=== PATIENT | male | born 1945 | race Caucasian/White ===

== ENCOUNTER 2017-05-03 00:26 | Day surgery (SDC) | payer OTHER ==
[~2017-05-03] VITALS: Ht 175.3 cm; Wt 138.3 kg
[2017-05-03] VITALS (17 sets, daily range): BP systolic 101–158; BP diastolic 59–97; PULSE 42–79; RESP 10–20; O2SAT 95–100
[~2017-05-03 00:26] MED LIST: ACET325C PO; AMIO200T PO; ASPI-973 PO; BUPR100T15 PO; DIGO125T73 PO; FINA5TAB9 PO; FUR20 PO; OMEG-38 PO; OXYC1TAB24 PO; PRAZ2CAP2 PO; PROP20TA5 PO; WARF5TAB7 PO; ZOLP10TA5 PO
[2017-05-03] MEDS ORDERED: Glycopyrrolate 0.2 MG/ML 1mL Inj ONE (00:27)
[2017-05-03] MEDS ORDERED: Ondansetron 2 mg/mL 2 mL Inj ONE (00:27)
[2017-05-03] MEDS ORDERED: Protamine Sulfate 10 mg/mL 5 mL Inj ONE ×2 (00:27→11:43)
[2017-05-03] MEDS ORDERED: fentaNYL-PF 50 mCg/mL 2 mL Inj ONE (00:27)
[2017-05-03] MEDS ORDERED: Propofol 10,000 mCg/mL 20 mL Inj ONE (00:27)
[2017-05-03] MEDS ORDERED: Rocuronium 10 mg/mL 5 mL Inj ONE (00:27)
[2017-05-03] MEDS ORDERED: Neostigmine 1 mg/mL 10 mL Inj ONE (00:27)
[2017-05-03] MEDS ORDERED: Benzoc-Butamben-Tetraca Spray 20 Gm Spray TOPICAL ONE (06:00)
[2017-05-03] MEDS: 0.9% Sodium Chloride 1,000 ML IV SCH ×2 (06:00→17:50)
[2017-05-03] MEDS ORDERED: Lactated Ringer's 1,000 ML IV ONE (06:00)
[2017-05-03 06:54] LABS: BASOPHILS % (AUTO) 0.4 % (0-3); EOSINOPHILS % (AUTO) 1.4 % (0-5); MONOCYTES % (AUTO) 7.1 % (4-12); Mean Corpuscular Hemoglobin 31.3 pg (27.0-35.0); Mean Corpuscular Volume 95.9 fL (81-100); NEUTROPHILS % (AUTO) 59.9 % (40-74); Platelet Count 168 bil/L (150-400)
--- NOTE | 2017-05-03 06:58 | NUR ---
patient admitted for AFSHIN/atrial fibrillation ablation with Dr. Morrissey.He is accompanied by his .
[2017-05-03 07:00] LABS: INR 2.32 ratio
[2017-05-03] MEDS ORDERED: WARF2.5T82 PO (07:18)
[2017-05-03] MEDS ORDERED: Heparin 25,000 Unit/500 mL 0.45% NS Premix IV ONE (07:33)
[2017-05-03] MEDS ORDERED: Heparin 1,000 Unit/mL 10 mL Inj ONE ×2 (07:33→11:41)
[2017-05-03] MEDS ORDERED: Heparin 1,000 Units/500 mL NS Premix IV ONE ×2 (07:39→08:06)
[2017-05-03] MEDS ORDERED: Heparin 10,000 Unit/1,000 mL NS Premix IV ONE (08:26)
[2017-05-03] MEDS ORDERED: Lactated Ringer's 500 ML IV PRN (11:03)
[2017-05-03] MEDS ORDERED: Lactated Ringer's 1,000 ML IV SCH (11:03)
--- NOTE | 2017-05-03 11:03 | PCM.HPANE ---
Patient Data Date of Service: May 03, 2017 (0750) Surgeon Admitting Provider: Attending Provider:Oleg Morrissey MD Primary Care Physician:Liam Ortega MD Other Provider:Suzie Jensen Anesthesia Reason for Visit Persistent Atrial Fibrillation Ht/WT & BMI Height (Feet): 5 Height (Inches): 9.00 Weight (Kilograms): 138.350 Body Mass Index 45.18 Past Anesthesia History Anesthesia History: Denies:: Abnormal Airway, Anesthesia Reactions, Difficult Intubation, Fam Anesthesia Reaction, Fam Malignant Hypertherm, Malignant Hyperthermia Diabetes History Hx Diabetes?: No MRSA MRSA: No Medications Reported Medications Warfarin Sodium 2.5 Mg Tablet2.5 Mg PO 4xweekly 30 Days Ref 0 05/03/17 Zolpidem 10 Mg [id number] Mg PO HS PRN For Insomnia Ref 0 05/02/17 Warfarin Sodium 5 Mg Tablet5 Mg PO 3xweekly 30 Days Ref 0 05/02/17 Propranolol HCl 20 Mg Gyzane90 Mg PO BID 90 Days Ref 0 05/02/17 Prazosin 2 Mg Capsule6 Mg PO HS 05/02/17 Furosemide 20 Mg Tab20 Mg PO DAILY 30 Days Ref 0 05/02/17 Finasteride 5 Mg Tablet5 Mg PO DAILY 30 Days Ref 0 05/02/17 Bupropion 100 Mg Sigxhv924 Mg PO BID Ref 0 05/02/17 Amiodarone 200 Mg Iofmzu129 Mg PO DAILY Ref 0 05/02/17 Acetaminophen 325 Mg [id number] Mg PO 05/02/17 Discontinued Reported Medications oxyCODONE-Acetaminophen 5-325 mg 1 Each Tablet1 Tab PO Q6H PRN For Pain Ref 0 05/02/17 [place]-3/Dha/Epa/Fish Oil (Fish Oil 1,000 mg Softgel)1 Each Capsule1 Each PO 05/02/17 Digoxin 125 Mcg Nrtlvq967 Mcg PO DAILY #30 TABLET Ref 0 05/02/17 Aspirin 81 Mg Hcdoui80 Mg PO DAILY Ref 0 05/02/17 History History of ENT Problems?: Yes HEENT History: Positive for:: Cataracts (removal from both eyes) Sinus Problem (seasonal allergies) Denture Type: None Teeth Condition: Within Normal Limits Hx of Heart Problems?: Yes Cardiovascular History: Positive for:: Cardiac Surgery (cardioversions) Irregular Heartbeat (atrial fibrillation) Hx of Respiratory Problem?: Yes Respiratory History: Positive for:: Dyspnea (exertional 2nd to atiral fib) Denies:: Asthma COPD Chest Surgery Cough Emphysema Hemoptysis Oxygen Administration Pneumonia Pulmonary Embolism Tuberculosis Use of C-PAP Machine Use of Inhalers / NEBS Hx Neurologic Problems?: No Hx of GI Problems?: Yes Hx of Problems?: No Hx Musculoskeletal Problems?: Yes Musculoskeletal History: Positive for:: Joint Replacement (left knee injury) Denies:: Back Injury Degenerative Joint Fibromyalgia Musculoskeletal Trauma Myasthenia Gravis Osteoarthritis Rheumatoid Arthritis Systemic Lupus Hx of Psycho/Social Problems?: Yes Psycho Social History: Positive for:: Hx Depression ("treated for years") Hx Surgeries?: Yes Hx Any Other Health Problems?: No Other History: Positive for:: Hospitalization (gastric bypass 1998, left arm, left wrist) Denies:: Cancer Thyroid Disease History Blood Transfusions: Positive for:: Accept Blood Products? Denies:: Blood Transfusions Hx Diabetes: No Hx Alcohol Use: Yes (2-3 glasses wine daily)Hx Substance Use: No Stop/Bang Risk Assessment Category Category 1A: Patient has history of documented sleep apnea, and HAS NOT received any narcotic, sedative or anesthesia administration during this stay. Category 1B: Patient has history of documented sleep apnea, and HAS received any narcotic , sedative or anesthesia administration during this stay Category 2: Patient has SUSPECTED Obstructive Sleep Apnea, and HAS received any narcotic , sedative or anesthesia administration during this stay. Category 3: Patient has SUSPECTED Obstructive Sleep Apnea and HAS NOT received narcotic, sedative or anesthesia administration during this stay. Category 4: Outpatient in Procedural Areas with known sleep apnea or who screen positive for High Risk via the STOP/BANG questionnaire. Exam Exam Vital Signs Vital Signs Date Time Temp Pulse Resp B/P Pulse Ox O2 Delivery O2 Flow Rate FiO2 05/03/17 06:44 37.0 79 10 158/97 97 Room Air General Appearance: Alert, Oriented X3, Cooperative, No Acute Distress HEENT/AIRWAY: MP 3 Lungs: Clear to Auscultation Heart: No Murmurs/Rubs/Gallops, Other (irregular) Meds/Labs/Diagnostics Labs Test 05/03/17 06:38 White Blood Count 4.9th/mm3 (3.8-10.1) Red Blood Count 4.18mil/mm3 (4.40-5.80) Hemoglobin 13.1g/dL (13.8-17.2) Hematocrit 40.1% (41.0-50.0) Mean Corpuscular Volume 95.9fL (81-100) Mean Corpuscular Hemoglobin 31.3pg (27.0-35.0) Mean Corpuscular Hemoglobin Concent 32.7% (32.0-37.0) Red Cell Distribution Width 14.6% (12.3-15.4) Platelet Count 168bil/L (150-400) Neutrophils (%) (Auto) 59.9% (40-74) Lymphocytes (%) (Auto) 31.0% (14-46) Monocytes (%) (Auto) 7.1% (4-12) Eosinophils (%) (Auto) 1.4% (0-5) Basophils (%) (Auto) 0.4% (0-3) Prothrombin Time 25.2sec (8.1-12.5) Prothromb Time International Ratio 2.32ratio Sodium Level 142mEq/L (134-144) Potassium Level 4.5mEq/L (3.5-5.2) Chloride Level 107mEq/L (97-108) Carbon Dioxide Level 20mmol/L (18-29) Blood Urea Nitrogen 24mg/dL (8-27) Creatinine 1.00mg/dL (0.76-1.27) Estimat Glomerular Filtration Rate 79mL/min (>59) Glucose Level 136mg/dL (60-99) Calcium Level 9.0mg/dL (8.5-10.1) Plan Impression Patient chart reviewed, patient interviewed and anesthestic plan with risks, benefits, and alternatives discussed, and informed consent obtained. ASA Physical Status: ASA3 Severe Disease Anesthetic Support Modalities: Arterial Line Anesthetic Plan: GA Bene/Risks/Altern/Consents: Yes HP Complete Prior to Induction: Yes Sundar Garcia MD May 03, 2017 11:03
[2017-05-03] MEDS ORDERED: HYDROmorphone 1 mg/mL Inj IVPUSH PRN (11:05)
[2017-05-03] MEDS ORDERED: EPHEDrine Sulfate 50 mg/mL Inj IVPUSH PRN (11:05)
[2017-05-03] MEDS ORDERED: fentaNYL-PF 50 mCg/mL 2 mL Inj IVPUSH PRN (11:05)
[2017-05-03] MEDS ORDERED: Phenylephrine 10,000 mCg/mL Inj IVPUSH PRN (11:05)
[2017-05-03] MEDS ORDERED: Dexamethasone 4 mg/mL Inj IVPUSH PRN (11:05)
[2017-05-03] MEDS ORDERED: Ondansetron 2 mg/mL 2 mL Inj IVPUSH PRN (11:05)
[2017-05-03] MEDS ORDERED: MetoCLOpramide 5 mg/mL 2 mL Inj IVPUSH PRN (11:05)
--- NOTE | 2017-05-03 11:07 | DRSVH ---
[facility] [address] [place] [address] Echocardiogram Report Name: EDUARDO HERNANDEZ RStudy Date: 05/03/2017 Height: 69 in Hospital Exam Location: [facility] Weight: 305 lb Gender: Male BSA: 2.5 m2 : 1945 Age: 72 yrs BP: 154/98 mmHg Performed By: Mila Abreu Referring Physician: SLICK RODRIGUEZ Interpretation Summary No thrombus is detected in the left atrial appendage. Procedure: A multifrequency, multiplane transesopheageal echocardiographic endoscope was inserted and manipulated in the standard fashion to achieve multiplane views. Atria: No thrombus is detected in the left atrial appendage. Mitral Valve: There is mild to moderate mitral regurgitation. Aortic Valve: The aortic valve is normal in structure and function. Reading Physician:09:37 AM
[2017-05-03] MEDS ORDERED: 0.9% Sodium Chloride 1,000 ML ONE (11:36)
--- NOTE | 2017-05-03 12:22 | PCM.ANEP1 ---
Post Anesthesia PACU Phase 1 Assessment Vital Signs Vital Signs Date Time Temp Pulse Resp B/P Pulse Ox O2 Delivery O2 Flow Rate FiO2 05/03/17 06:44 37.0 79 10 158/97 97 Room Air Anesthetic Administered: GA Level of Alertness: Awake, talking Pain: No Nausea or Vomiting: No CV Function & Hydration Stable: Yes Airway Device: Oxygen Delivery: Simple Mask Lungs: Clear to Auscultation Dermatome Level: Full Sensation PACU Phase 2 Assessment Complications: No Patient Instructions Provided: N/A Sundar Garcia MD May 03, 2017 12:22
--- NOTE | 2017-05-03 12:45 | NUR ---
Dr Morrissey informed of patient's bradycardia. He has propanolol ordered which he has not taken today. will hold for today.
--- NOTE | 2017-05-03 13:42 | PROCED ---
[address] [address] PROCEDURE NOTE PATIENT: EDUARDO HERNANDEZ : 1945 MR#: [id number] ADMIT: 05/03/2017 JOB ID: [id number] DATE OF SERVICE: 05/03/2017 PREOPERATIVE DIAGNOSIS(ES): Persistent drug refractory symptomatic atrial fibrillation. POSTOPERATIVE DIAGNOSIS(ES): Persistent drug refractory symptomatic atrial fibrillation. PROCEDURES PERFORMED: 1. Comprehensive electrophysiology study. 2. Three-dimensional electroanatomic mapping using the CARTO 3 system. 3. Transseptal puncture x2. 4. Intracardiac echocardiography. 5. Atrial fibrillation ablation with pulmonary vein isolation. 6. Barium esophagram. 7. Direct current cardioversion. 8. Fluoroscopy. SURGEON: Turret Lathe Machinist: Oleg Morrissey MD, electrophysiology attending ASSISTANTS: Shan Luna, Liam Abel PA-C, Luly Galeas. ANESTHESIA: General endotracheal anesthesia was undertaken for this case. INDICATION: The patient is a pleasant 72-year-old man with atrial fibrillation refractory to medical therapy with amiodarone. After discussion of the risks and benefits of catheter based mapping and ablation, he opted to proceed. PROCEDURAL DESCRIPTION: Following informed and signed consent, the patient was taken to the EP laboratory in a fasting nonsedated state, where he was prepped and draped in the usual sterile fashion. He underwent a preprocedural transesophageal echocardiogram by Dr. Rene confirming the lack of intracardiac thrombus. Please see separate dictated report for the details of that procedure. The bilateral groins were then infiltrated with 1% lidocaine; then, using modified Seldinger technique, two 8-Tristanian sheaths were inserted into the right femoral vein, a 7 and a 10.5-Tristanian sheath were inserted into the left femoral vein. Under fluoroscopic guidance a deflectable decapolar catheter was advanced to the coronary sinus with the most proximal bipolar at the os of the sinus. An intracardiac echocardiography probe was advanced to the RV outflow tract and used to visualize the pericardial space. No effusion was noted. The ICE probe was pulled back into the right atrium and used to visualize the interatrial septum in assistance of transseptal puncture. Two transseptal punctures were performed in an identical fashion. Each of the short 8-Tristanian sheaths was exchanged over a long wire for a MobileDay sheath dilator and a [place] needle. The entire system was used to engage the interatrial septum, then under fluoroscopic, ICE, and pressure guidance the septum was traversed twice to deploy the two Lewis sheaths into the left atrium. The patient was heparinized for a goal ACT of 300-400 seconds for the entire time we were in the left atrium following the first and preceding the second transseptal puncture. A re-survey of the pericardial space showed no evidence of effusion. Through the two Lewis sheaths an F curve irrigated tip SmartTouch ablation catheter was passed, as was a 20 pole PentaRay catheter. A three-dimensional electroanatomic map of the left atrium and four pulmonary veins was created using the Front Row 3 system. The veins were then individually isolated for entrance and exit block. The patient was in atrial fibrillation at the onset of the case. Following entrance block in the left upper pulmonary vein the patient was cardioverted with a 200 joule biphasic synchronized shock. Exit block was confirmed from this vein. I then addressed the left lower, right upper, and right lower pulmonary veins. Prior to any ablation a barium esophagram was performed and a temperature probe was placed. The esophagus was closest to the posterior aspect of the left-sided pulmonary veins. Lower wattage, shorter duration samuels were placed in this area. Once entrance and exit block was confirmed in all four pulmonary veins, we disengaged from the left atrium, reversed the patient's heparin with protamine, and resurveyed the pericardial space, showing no evidence of effusion. During the course of this study a comprehensive electrophysiology study was undertaken with right atrial pacing recording, right ventricular pacing recording, His bundle recording, and left atrial pacing recording. All catheters and sheaths were removed. Manual pressure was held for hemostasis. The patient was transferred to the [facility] for monitoring and bed rest. COMPLICATIONS: None. ESTIMATED BLOOD LOSS: 20-30 mL. FINDINGS: 1. Baseline rhythm is atrial fibrillation with controlled ventricular response. Post ablation and cardioversion he was in sinus rhythm with an RR interval of 1164 msec, NM 202 msec, QRS 79 msec, QT 535 msec. 2. Intracardiac intervals: AH interval 78 msec, HV 56 msec. 3. Retrograde conduction is concentric. [place] Wenckebach is seen at 440 msec. 4. Pulmonary vein isolation with entrance and exit block as described above. IMPRESSION: Successful pulmonary vein isolation procedure for drug refractory persistent atrial fibrillation. PLAN: 1. Bed rest x4 hours. 2. Continue amiodarone and anticoagulation with warfarin. 3. Protonix 40 mg p.o. daily x1 month. 4. Follow up with Liam Abel PA-C in four weeks and with me in three months. 5. Monitoring overnight. ATTENDING STATEMENT: Oleg Morrissey MD, electrophysiology attending, was present for and supervised/performed all aspects of this procedure.
--- NOTE | 2017-05-03 14:06 | NUR ---
Per patient request, olson catheter removed.After balloon deflated, I had to thug at removing catheter.Blood streaking along catheter tip noted and shown to patient.He has enlarged prostate and taked finasteride routinely. He did not take medication this am so it has been ordered stat.
--- NOTE | 2017-05-03 15:05 | NUR ---
Patient transferred to room 2028 in stable condition.Bone removed earlier, patient has not voided, finasteride given since he did not take prior to admission. c/o headache and tylenol 975mg p.o given.He is drinking water without difficulty, has not wanted to eat, I offered him crackers and informed him we could order something from kitchen but he declined. Bilateral groin sites soft with mild tenderness at site. Sinus bradycardia on monitor.Handoff at bedside to Nora Sterling R.N. with verbal report given to her prior to transfer.
--- NOTE | 2017-05-03 17:39 | PCM.PHAPRO ---
Progress Date of Service: May 03, 2017 ANTICOAGULATION MANAGEMENT BY PHARMACY -INDICATION: AFIB -HOME DOSE: 5 MG MON,MON,MON 2.5 MG MON,,MON,SAT -COAG TRENDS: Date INR 2.32 PLAN: INR THERAPEUTIC WILL CONTINUE WITH HOME DOSE TONIGHT AND MONITOR DAILY Pharmacy appreciates consult and will continue to monitor. THANKS! Kya Balbuena PharmD May 03, 2017 17:39
[2017-05-03] MEDS ORDERED: PRAZOSIN PO SCH ×2 (21:00)
--- NOTE | 2017-05-04 01:14 | NUR ---
Hematuria Pt c/o blood in about 30ml of urine. VSS. Denies pain with HX of BPH. MD aware and no new orders given with continued monitoring. Pt voided again about 50ml and it was dark yellow without s/sx of blood noted. Bed in lowest position and call light within reach. Care continues.
[2017-05-04 03:14] VITALS: BP 144/81; PULSE 60; RESP 18; O2SAT 98
[2017-05-04] MEDS: 0.9% Sodium Chloride 1,000 ML IV SCH (03:19)
[2017-05-04 04:57] VITALS: PULSE 74
[2017-05-04 05:39] LABS: INR 2.28 ratio
[2017-05-04] MEDS ORDERED: Pantoprazole 40 mg ER24 Tablet PO SCH (06:30)
[2017-05-04 08:00] VITALS: PULSE 61
--- NOTE | 2017-05-04 08:50 | PCM.DIMED ---
Discharge Instructions Date of Service May 04, 2017 Dates of Hospitalization Discharge Diagnosis Discharge Diagnosis Atrial Fibrillation Prior cardioversions Diet Discharge Diet: Heart Healthy Activity Discharge Activity: Other (To prevent infection, do not sit in a bath tub, hot tub or pool for 1 week. To prevent bleeding, do not lift, push or pull more than 10 lbs for one week.) Call your provider Call your provider for: Fever or Chills, Bleeding, Excessive diarrhea, Weakness (unilateral) Patient Instructions Provider: Oleg Morrissey MD Follow-up in: Other (3 months; at 12:40 (check-in time)) Mid-level Provider (F9): Liam Abel PA-C Follow-up with Mid-level in: 4 weeks (Jun 15 at 1:30 (check-in time)) Liam Abel PA-C May 04, 2017 08:50
[2017-05-04] MEDS ORDERED: PROP20TA5 PO (08:59)
[2017-05-04] MEDS ORDERED: PANT40TA3 PO (08:59)
--- NOTE | 2017-05-04 09:57 | DIS ---
[address] [address] DISCHARGE SUMMARY PATIENT: EDUARDO HERNANDEZ : 1945 MR#: [id number] ADMIT: 05/03/2017 JOB ID: [id number] DIS: ADMISSION DATE: 05/03/2017 DISCHARGE DATE: 05/04/2017 REASON FOR ADMISSION: Atrial fibrillation and ablation procedure. CHIEF COMPLAINT: Tachycardia, palpitations, and exertional dyspnea and fatigue. BRIEF HISTORY: The patient is a pleasant 71-year-old man with preserved biventricular function who has been experiencing symptomatic atrial fibrillation for quite some time now. He has previously undergone at least five cardioversions. The last of which was not successful. He has been symptomatic with atrial fibrillation for the past several months and was previously transitioned from sotalol to amiodarone, but has remained in atrial fibrillation. When in the arrhythmia he experiences fatigue and exertional dyspnea and a hoarse voice and palpitations. He wished to have more definitive therapy in the form of an ablation. COURSE IN HOSPITAL: The patient was admitted through the [facility] and taken to the labor relations representative, where he was first placed under general anesthesia by the anesthesiologist. He then had a AFSHIN performed, which showed no evidence of left atrial thrombus. The ablation procedure was then undertaken and accomplished without incident. Afterward the right and left femoral sheaths were removed, hemostasis was obtained. He was awakened from general anesthesia. The patient was transferred back to the [facility] for further recovery before being taken up to the [facility] for overnight care. He did well overnight, the Bone catheter was removed, and he was able to urinate spontaneously. The femoral access sites were without hematoma and had good hemostasis. He was ambulatory without difficulty. He did not complain of chest pain or dyspnea and felt well for discharge home. DISPOSITION: The patient was discharged home in good condition with a followup appointment at the [facility] Cardiology office in one month. He was asked to not lift push or pull more than 10 pounds for one week to prevent bleeding and to prevent infection he was asked not to sit in a hot tub, bathtub, or pool for one week. He will take medications as prescribed. Follow his heart healthy diet and limit activities as mentioned. DISCHARGE MEDICATIONS: 1. Pantoprazole 40 mg daily for 1 month only. 2. Amiodarone 200 mg daily. 3. Bupropion 100 mg b.i.d. 4. Finasteride 5 mg daily. 5. Furosemide 20 mg daily. 6. Prednisone 6 mg at bedtime. 7. Warfarin 5 mg three times per week and 2.5 mg four times per week or as directed by his anticoagulation clinic. 8. Zolpidem 10 mg at bedtime p.r.n. insomnia. 9. Propranolol 20 mg once daily. FINAL DIAGNOSES: Paroxysmal and persistent atrial fibrillation.
[2017-05-04 10:18] VITALS: BP 132/74; PULSE 60; RESP 20; O2SAT 100
--- NOTE | 2017-05-04 10:50 | NUR ---
Discharge of patient Reviewed discharged instructions with patient and patient's . Patient verbalized understanding. Patient discharged by walking out of hospital with instructions and all belonging.
== END 2017-05-04 10:30 | disposition home or self-care (01) ==
LOC: SOUO 00:26 → PCC 14:42 → SOUO 05-04 10:30
PROVIDERS: ATTEND Internal Medicine Cardiovascular Disease
DX: I48.1 Persistent atrial fibrillation (principal); I48.0 Paroxysmal atrial fibrillation; Z79.899 Other long term (current) drug therapy; Z79.82 Long term (current) use of aspirin; Z79.01 Long term (current) use of anticoagulants
CPT/HCPCS: 36415; 80048; 85025; 85610; 92960; 93005; 93613; 93656; 93662; C1730; C1732; C1759; C8925; J1644; J2405; J2710; J2720; J3010; J7030